=== PATIENT | female | born 1960 | race Caucasian/White ===

== ENCOUNTER 2017-07-18 08:27 | Emergency (ER) | payer SELFPAY ==
--- NOTE | 2017-07-18 08:57 | CPEKG ---
Heart Rate: 77 RR Interval: 779 P-R Interval: 176 QRSD Interval: 108 QT Interval: 400 QTC Interval: 453 P [place]: 35 QRS [place]: -36 T Wave [place]: 57 EKG Severity - ABNORMAL ECG - EKG Impression: SINUS RHYTHM EKG Impression: INCOMPLETE RIGHT BUNDLE BRANCH BLOCK Electronically Signed By: Daniel Gorman 18-Jul-2017 09:34:11
--- NOTE | 2017-07-18 09:03 | EDPHY ---
General - History Smoking Status: Never smoked Time Seen by Provider: 07/18/17 08:50 Narrative: CHIEF COMPLAINT: Flash, itching, lightheaded HISTORY OF PRESENT ILLNESS: Patient presents with parents at bedside. They were running together around 7: 30 a.m. When she began to feel flush in the face, lightheaded, itching, and as if she were going to pass out. She sat down on the ground and her friend helped her laid down. Bystanders provided juice and coffee with sugar in it. She drank the slowly and began to improve. She had no chest pain during any of this. She had no unilateral complaints. She has not had this happen to her in the past she has no history of cardiomyopathy, congestive heart failure or coronary artery disease. She does not feel ill recently. She has no rash. She has no difficulty breathing or swallowing. She does report that she changed her diet over the past 30 days to decrease her carbohydrate intake. She also reports a new nutritional supplement this morning called MCT Oil. She has used this in the past but this was a new brand this morning. She has no history of diabetes. She is starting to feel better but still has some of the symptoms. Her friend at bedside denies any facial droop, slurred speech or unilateral weakness. Her friend at bedside was with her for the entirety of the scenario. No other associated complaints or modifying factors. REVIEW OF SYSTEMS: Ten systems reviewed and are negative unless otherwise noted in the HPI PCP: Dr. Clement SPECIALISTS: None PAST MEDICAL HISTORY: Denies any medical diagnoses PAST SURGICAL HISTORY: No recent surgeries. SOCIAL HISTORY: Never smoker. No drugs or alcohol use. 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 Lives here locally independently FAMILY HISTORY: Noncontributory EXAMINATION General Appearance: Alert, no distress. Well-developed and well-nourished. Head: normocephalic, atraumatic Eyes: Pupils equal and round, no conjunctival pallor or injection. EOMs are symmetric. ENT, Mouth: Mucous membranes moist. No swelling of the lips or tongue. Airway is widely patent without any edema. No abnormality of the floor of the mouth. Neck: Normal inspection, supple, non-tender Respiratory: Lungs are clear to auscultation. No wheezing, rhonchi or crackles Cardiovascular: Regular rate and rhythm. No murmur. Radial pulses are symmetric at 2+. DP pulses are symmetric at 2+. Gastrointestinal: Abdomen is soft and nontender Back: non-tender, no bony abnormalities Neurological: GCS 15. A&O, nonfocal, no pronator drift. Normal finger to nose. Strength is symmetric in the arms of 5/5. Strength is symmetric in the lower extremities at 5/5.. Skin: Warm and dry, no rash.No petechiae or purpura. Extremities: Nontender, no pedal edema. Range of motion symmetric Psychiatric: Mood and affect normal DIFFERENTIAL DIAGNOSES: Including but not limited to hypoglycemia, sympathetic response, ACS, hypertrophic cardiomyopathy, CVA, TIA MDM: 9:10 a.m. Near syncope with lightheadedness and flushing and itching while running. She has had no chest pain at any time. She did not fall or injure herself. She had no loss of conscious. She has no unilateral complaints. I feel that cardiac etiologies are unlikely. She did start a new supplement this morning that may have contributed to this. I will check a blood sugar and laboratory studies. I have ordered chest x-ray and she has an EKG is currently being performed. 9:20 a.m. Blood glucose is 129. Remainder of laboratory studies are pending. 9:40 a.m. CBC and chemistry unremarkable. Troponin is still pending 9:55 a.m. Patient has been evaluated by Dr. Gorman. He agrees that a cardiac etiology is unlikely. 10:00 a.m. Patient re-evaluated. She will receive IV Benadryl for the possibility of allergic reaction. There is no evidence of anaphylaxis and no abnormality of the oropharynx. Her airway is widely patent without any distress, drooling or swelling. We discussed further [id number] antihistamines as needed for symptom control. We discussed caution if proceeding with use of the same supplement she has this morning. She will contact her primary care physician for outpatient follow-up. ED precautions discussed. She will be discharged home stable condition following the IV Benadryl. 10:45 a.m. Patient has received IV Benadryl. She has less itching. She still feels somewhat "woozy" when walking, which I would expect after IV Benadryl. She has a normal steady gait, no evidence of anaphylaxis. She is discharged home stable condition. EKG interpretation: Dr. Gorman Sinus rhythm, rate 77 beats per minute. SUPERVISION: Patient was evaluated and examined in conjunction with my secondary supervising physician as documented. We have both examined the patient. (Smith Coyne) Medical Decision Making: PHYSICIAN DOCUMENTATION: The patient was evaluated and managed by the Physician Advanced Nursing Professor and myself. I have reviewed the chart and agree with the findings and plan of care as documented. In addition, I examined the patient myself at 950. History confirmed as while she was running she felt itchy followed by facial swelling and a little bit lightheaded and dizzy but no actual syncope or chest pain.. Physical findings as follows: Normal uvula, no visible angioedema, no stridor or drooling, no wheezing, no murmur on cardiac exam, no rales. Speaks in full sentences, much more likely to be allergic then obstructive cardiomyopathy or dysrhythmia or other cardiac. I think stroke or seizure is unlikely. 50 mg IV Benadryl, oral fluids. 12-lead EKG interpreted by me; official reading is in trace master. My interpretation is sinus rhythm, slightly widened QRS at about 90-100 on 2 separate tracings, with partial right bundle-branch pattern, otherwise normal. I am the secondary supervising physician. (Daniel Gorman) - Objective Vital Signs: Initial Vital Signs Temperature (C) 36.8 C 07/18/17 08:28 Heart Rate 76 07/18/17 08:28 Respiratory Rate 18 07/18/17 08:28 Blood Pressure 113/76 07/18/17 08:28 O2 Sat (%) 98 07/18/17 08:28 O2 Delivery Mode Room Air Allergies/Adverse Reactions: No Known Allergies Allergy (Unverified 07/18/17 08:37) Home Medications: Medication Instructions Recorded NK [No Known Home Meds] 07/18/17 Laboratory Results: Laboratory Results 07/18/17 09:00 07/18/17 09:00 07/18/17 07/18/17 07/18/17 09:07 09:00 09:00 WBC 7.90 10^3/uL 10^3/uL (3.80-9.50) RBC 4.57 10^6/uL 10^6/uL (4.18-5.33) Hgb 14.3 g/dL g/dL (12.6-16.3) POC Hgb 15.0 gm/dL gm/dL (12.6-16.3) Hct 43.3 % % (38.0-47.0) POC Hct 44 % % (38-47) MCV 94.7 fL fL (81.5-99.8) MCH 31.3 pg pg (27.9-34.1) MCHC 33.0 g/dL g/dL (32.4-36.7) RDW 12.7 % % (11.5-15.2) Plt Count 242 10^3/uL 10^3/uL (150-400) MPV 10.2 fL fL (8.7-11.7) Neut % (Auto) 73.9 % % (39.3-74.2) Lymph % (Auto) 17.3 % % (15.0-45.0) Cassia % (Auto) 5.9 % % (4.5-13.0) Eos % (Auto) 2.0 % % (0.6-7.6) Baso % (Auto) 0.4 % % (0.3-1.7) Nucleat RBC Rel Count 0.0 % % (0.0-0.2) Absolute Neuts (auto) 5.83 10^3/uL 10^3/uL (1.70-6.50) Absolute Lymphs (auto) 1.37 10^3/uL 10^3/uL (1.00-3.00) Absolute Monos (auto) 0.47 10^3/uL 10^3/uL (0.30-0.80) Absolute Eos (auto) 0.16 10^3/uL 10^3/uL (0.03-0.40) Absolute Basos (auto) 0.03 10^3/uL 10^3/uL (0.02-0.10) Absolute Nucleated RBC 0.00 10^3/uL 10^3/uL (0-0.01) Immature Gran % 0.5 % % (0.0-1.1) Immature Gran # 0.04 10^3/uL 10^3/uL (0.00-0.10) POC Sodium 139 mEq/L mEq/L (135-145) Sodium 139 mEq/L mEq/L (135-145) POC Potassium 3.4 mEq/L mEq/L (3.3-5.0) Potassium 3.9 mEq/L mEq/L (3.5-5.2) POC Chloride 103 mEq/L mEq/L (97-110) Chloride 102 mEq/L mEq/L (97-110) Carbon Dioxide 23 mEq/l mEq/l (22-31) Anion Gap 14 mEq/L mEq/L (8-16) POC BUN 15 mg/dL mg/dL (7-23) BUN 16 mg/dL mg/dL (7-23) Creatinine 0.6 mg/dL mg/dL (0.6-1.0) POC Creatinine 0.6 mg/dL mg/dL (0.6-1.0) Estimated GFR > 60 Glucose 123 mg/dL H mg/dL (70-100) POC Glucose 129 mg/dL H mg/dL (70-100) Calcium 9.2 mg/dL mg/dL (8.5-10.4) Troponin I < 0.012 ng/mL ng/mL (0.000-0.034) Medications Given: Discontinued Medications Diphenhydramine HCl (Benadryl Injection) 50 mg IVP EDNOW ONE Stop: 07/18/17 10:01 Last Admin: 07/18/17 10:08 Dose: 50 mg Point of Care Test Results: 07/18/17 09:07 POC Sodium 139 POC Potassium 3.4 POC Chloride 103 POC BUN 15 POC Creatinine 0.6 POC Glucose 129 H Departure - Departure Disposition: Home, Routine, Self-Care Clinical Impression: Flushing, Localized pruritus Condition: Good Instructions: General Allergic Reaction (ED) Additional Instructions: 1. Recommend [id number] antihistamine as needed for any persistent itching 2. ED precautions for any swelling of the face, lips or tongue, chest pain, shortness of breath, unilateral complaints Referrals: YAMILKA CLEMENT [Primary Care Provider] - As per Instructions
[2017-07-18 09:17] LABS: PLATELET COUNT 242 10^3/uL (150-400)
--- NOTE | 2017-07-18 10:01 | CPEKG ---
Heart Rate: 77 RR Interval: 779 P-R Interval: 200 QRSD Interval: 96 QT Interval: 428 QTC Interval: 485 P [place]: 20 QRS [place]: -21 T Wave [place]: 66 EKG Severity - OTHERWISE NORMAL ECG - EKG Impression: SINUS RHYTHM EKG Impression: BORDERLINE LEFT AXIS DEVIATION Electronically Signed For: Daniel Gorman 18-Jul-2017 10:01:40
[2017-07-18] MEDS ORDERED: methylPREDNISolone SOD SUCC 125 MG/2 ML VIAL ONE (10:06)
[2017-07-18 10:46] VITALS: BP 117/75
== END 2017-07-18 10:56 | disposition home or self-care (01) ==
DX: L29.9 Pruritus, unspecified (principal); R23.2 Flushing
CPT/HCPCS: 82947-QW; 96374; J1200; J2930